=== PATIENT | male | born 1995 | race Caucasian/White ===

== ENCOUNTER 2019-03-19 20:37 | Emergency (ER) | payer BC ==
[~2019-03-19] VITALS: Ht 175.3 cm; Wt 56.0 kg
[~2019-03-19 20:37] MED LIST: ASPI325T30 PO; HYDR50TA15 PO; ZOLP5TAB PO
[2019-03-19 20:43] VITALS: Ht 175.3 cm; Wt 56.0 kg
[2019-03-19] MEDS ORDERED: ASPIRIN 325 MG TAB PO ONE (23:00)
[2019-03-19] MEDS ORDERED: LORAZEPAM 1 MG TAB PO ONE (23:00)
[2019-03-20 01:03] VITALS: BP 132/79; PULSE 63; RESP 18
== END 2019-03-20 01:04 | disposition home or self-care (01) ==
LOC: FTE 20:37
DX: F41.9 Anxiety disorder, unspecified (principal); R07.9 Chest pain, unspecified; G47.00 Insomnia, unspecified; Z79.82 Long term (current) use of aspirin
CPT/HCPCS: 71046; 80053; 84484; 85025; 85610; 85730; 93005; Z7610; 36415